=== PATIENT | female | born 1990 | race Caucasian/White ===

== ENCOUNTER 2021-08-16 22:00 | Inpatient (IN) | payer BC, OTHER, SELFPAY ==
[2021-08-17] MEDS ORDERED: Ondansetron ODT 4 MG TAB PO PRN (00:02)
[2021-08-17] MEDS ORDERED: Ondansetron PF 4 MG/2 ML Vial IVP PRN (00:02)
[2021-08-17] MEDS ORDERED: Acetaminophen 325 MG TAB PO PRN (00:02)
[2021-08-17 00:12] LABS: Bilirubin Neg (Negative); Blood, Urine 50 (Negative); Clarity Clear (Clear); Glucose, Urine (Dipstick) Normal (Negative); Ketone, Urine 5 mg/dL (Negative); Leukocyte 100 (Negative); Nitrite Negative (Negative); Protein, Urine (Dipstick) 15 mg/dl (Neg-Trace); Specific Gravity, Urine 1.025 (1.002-1.036); Urobilinogen Normal mg/dL (Less than 2)
[2021-08-17 00:13] LABS: #Basophils 0.1 10x3/uL (0.0-0.2); #Eosinphils 0.1 10x3/uL (0.0-0.5); #Monocytes 0.9 10x3/uL (0.0-1.1); #Neutrophils 9.4 10x3/uL (1.5-8.4); %Basophils 0.5 % (0.0-2.0); %Eosinophils 1.2 % (0.0-6.0); %Lymphocytes 10.3 % (18.0-47.0); %Monocytes 7.1 % (0.0-10.0); %Neutrophils 79.4 % (40.0-75.0); Hemoglobin 10.4 g/dL (12.0-15.5); Mean Corpuscular HGB CONC 34.3 g/dL (32.0-36.0); Mean Corpuscular Hemoglobin 31.3 pg (27.0-33.0); Mean Corpuscular Volume 91.3 fl (81.6-98.3); Mean Platelet Volume 9.1 fl (7.4-10.4); Platelet Count 358 10x3/uL (150-450); RBC Distribution Width 12.5 % (11.5-14.5); Red Blood Cell (RBC) Count 3.32 10x6/uL (3.90-5.03); White Blood Cell (WBC) Count 11.9 10x3/uL (3.5-10.5)
[2021-08-17 00:24] LABS: Bacteria/HPF None Seen HPF (None Seen); Mucous/LPF 2+ LPF (<2+); Squamous Epithelial 0-3 HPF (0-3); WBC/HPF 0-3 HPF (0-3)
[2021-08-17 00:36] LABS: ALT (SGPT) 12 U/L (8-55); AST (SGOT) 12 U/L (5-34); Albumin 3.8 g/dL (3.5-5.0); Alkaline Phosphatase 74 U/L (40-110); Anion Gap 15 mmol/L (10-20); BUN (Urea Nitrogen) 12 mg/dL (7.0-18.7); Bilirubin, Total 0.4 mg/dL (0.2-1.2); Calc. Creatinine Clearance 0 mL/min (70-130); Calcium 9.5 mg/dL (7.8-10.44); Carbon Dioxide 22 mmol/L (22-29); Chloride 106 mmol/L (98-107); Globulin 3.5 g/dL (2.4-3.5); Glucose 95 mg/dL (70-105); Lipase 26 U/L (8-78); Magnesium 1.9 mg/dL (1.6-2.6); Potassium 4.1 mmol/L (3.5-5.1); Protein, Total 7.3 g/dL (6.0-8.3); Sodium 139 mmol/L (136-145)
[2021-08-17] MEDS ORDERED: Clindamycin/D5W 300 MG/50 ML BAG IVPB SCH (03:00)
[2021-08-17] MEDS: Sodium Chloride 0.9% 1,000 ML IV SCH ×3 (03:38→19:29)
[2021-08-17] MEDS: Ampicillin 2 GM in Sodium Chloride 0.9% 100 ML SLOW IVP SCH ×4 (04:20→22:02)
[2021-08-17] MEDS: Gentamicin Sulfate 340 MG in Sodium Chloride 0.9% 100 ML IVPB SCH (05:02)
[2021-08-17] MEDS ORDERED: SODIUM CHLORIDE 0.9% SLOW IVP SCH (06:00)
[2021-08-17] MEDS ORDERED: AMPICILLIN SLOW IVP SCH (06:00)
[2021-08-17] MEDS: Clindamycin/D5W 900 MG in Premix Bag 1 BAG IVPB SCH ×3 (08:18→23:46)
[2021-08-17] MEDS: Ibuprofen 600 MG TAB PO PRN ×2 (08:43→19:55)
[2021-08-17] MEDS: Prenatal Vitamin 1 TAB PO SCH (09:00)
[2021-08-17 15:50] LABS: SARS-CoV-2 PCR by NAA Not Detected (NotDetected)
[2021-08-18] MEDS: Ampicillin 2 GM in Sodium Chloride 0.9% 100 ML SLOW IVP SCH (03:31)
[2021-08-18] MEDS: Sodium Chloride 0.9% 1,000 ML IV SCH (03:37)
[2021-08-18] MEDS: Gentamicin Sulfate 340 MG in Sodium Chloride 0.9% 100 ML IVPB SCH (04:19)
[2021-08-18 08:43] VITALS: BP 100/57; TEMP 98
[2021-08-18] MEDS: Prenatal Vitamin 1 TAB PO SCH (08:48)
[2021-08-18] MEDS: Clindamycin/D5W 900 MG in Premix Bag 1 BAG IVPB SCH (08:48)
== END 2021-08-18 09:40 | disposition home or self-care (01) | DRG 769 ==
LOC: CSHERS 22:00 → CSHPP 08-17 02:06
PROVIDERS: ADMIT Obstetrics & Gynecology; ATTEND Obstetrics & Gynecology
PROC: 10D17Z9 Manual Extraction of Products of Conception, Retained, Via Natural or Artificial Opening (ICD-10-PCS; principal; 2021-08-17)
DX: O86.12 Endometritis following delivery (principal); Z20.822 Contact with and (suspected) exposure to COVID-19; O73.1 Retained portions of placenta and membranes, without hemorrhage
CPT/HCPCS: 36415; 76856; 80053; 81003; 81015; 83605; 83690; 83735; 85025; 86850; 86900; 86901; 87040; 87086; 88305; 96365; J0290; J1580; J3490; J7050; U0003; U0005